=== PATIENT | male | born 1935 | race Caucasian/White ===

== ENCOUNTER 2017-06-04 12:16 | Emergency (ER) | payer MEDICARE, BC ==
[~2017-06-04] VITALS: Ht 170.2 cm; Wt 94.3 kg
[~2017-06-04 12:16] MED LIST: AMLO10 PO; AMLO5 PO; ASPI325EC PO; ASPI81CH PO; ASPI81EC PO; ATOR10 PO; B12; CLON.1; DIPATR; DOCU100 PO; DUTA.5 PO; ESCI10; ESCI10 PO; EXELON PATCH; EXELON1 EACH TD; FINA5 PO; HYDACE10B; HYDR1TAB94 PO; Hydrocodone-Ap1 EA23; MELO7.5; MELO7.5 PO; MEMA10 PO; METO50ER PO; METR500; MULVIT PO; Men's Multi-Vi1 EACH PO; Mobic15 MG; NAMENDA XR28 MG; NORT10 PO; NORT25 PO; Nortriptyline H10 MG; OMEP20ER PO; OMEPRAZOLE MAGN20 MG PO; ONDA4ODT; OXYACE5T PO; PRAV40 PO; PROP120ER PO; PSYL5.85P PO; RAMI2.5 PO; RAMI5 PO; RIVA1.5 TOP; RIVASTIGMINE1 EAC2; RIVASTIGMINE1 EAC2 TD; Ramipril10 MG; TAMS.4ER PO; TOCO1000 PO; VITAMINS; Zofran Odt4 MG SL
[2017-06-04 13:18] LABS: BASOPHILS ABSOLUTE AUTO 0.08 K/mm3 (0.00-0.23); BASOPHILS PERCENT AUTO 1 % (0-2); EOSINOPHILS PERCENT AUTO 5 % (0-6); Hematocrit 43.4 % (37.0-53.0); Hemoglobin 14.9 g/dL (13.5-17.5); IMMATURE GRAN ABSOLUTE AUTO 0.01 K/mm3 (0.00-0.10); IMMATURE GRAN PERCENT AUTO 0 % (0-1); LYMPHOCYTES ABSOLUTE AUTO 1.74 K/mm3 (0.84-5.20); LYMPHOCYTES PERCENT AUTO 30 % (21-46); MONOCYTES ABSOLUTE AUTO 0.49 K/mm3 (0.16-1.47); MONOCYTES PERCENT AUTO 8 % (4-13); Mean Corpuscular HGB Conc 34.3 g/dL (31.5-36.5); Mean Corpuscular Volume 93 fL (80-100); Mean Platelet Volume 9.6 fL (9.1-12.4); NEUTROPHILS ABSOLUTE AUTO 3.23 K/mm3 (1.96-9.15); NEUTROPHILS PERCENT AUTO 55 % (41-73); Platelet Count 176 K/mm3 (150-400); RDW Coefficient Variation 11.9 % (11.7-14.2); RDW Standard Deviation 41.1 fL (35.1-46.3); Red Blood Cell Count 4.65 M/mm3 (4.30-5.90); White Blood Cell Count 5.85 K/mm3 (4.00-11.30)
[2017-06-04 15:11] LABS: Alanine Aminotransfer (ALT/SGP 20 U/L (12-78); Albumin/Globulin Ratio 1.1 (0.8-1.8); Alk Phos 62 U/L (50-136); Anion Gap 8 mmol/L (6-16); Aspartate Aminotrans (AST/SGOT 19 U/L (12-37); Bilirubin, Total 1.1 mg/dL (0.1-1.0); Blood Urea Nitrogen 12 mg/dL (8-24); Bun/Creatinine Ratio 15.9 (12.0-20.0); CO2, Blood 28 mmol/L (21-32); Calcium, Blood 8.7 mg/dL (8.5-10.1); Chloride, Blood 104 mmol/L (98-108); Creatinine, Blood 0.75 mg/dL (0.60-1.20); Globulin, Blood 3.5 g/dL (2.2-4.0); Glomerular Filtration Rate >60 (60-); Glucose, Blood 116 mg/dL (70-99); Potassium, Blood 3.5 mmol/L (3.5-5.5); Sodium, Blood 140 mmol/L (136-145); Total Protein, Blood 7.5 g/dL (6.4-8.2)
== END 2017-06-04 15:44 | disposition home or self-care (01) ==
LOC: ER 12:16
PROVIDERS: Physician Assistant; Psychiatry & Neurology Psychiatry
DX: I10 Essential (primary) hypertension (principal); E78.5 Hyperlipidemia, unspecified; Z87.891 Personal history of nicotine dependence; Z79.899 Other long term (current) drug therapy; Z79.82 Long term (current) use of aspirin
CPT/HCPCS: 36415; 71046; 80053; 83880; 84484; 85025; 93005; 93010; 99283

== ENCOUNTER 2017-07-26 08:43 | Emergency (ER) | payer MEDICARE, BC ==
[~2017-07-26] VITALS: Ht 172.7 cm; Wt 95.2 kg
[2017-07-26] MEDS ORDERED: QUETIAPINE FUMA50 MG PO (09:24)
[2017-07-26] MEDS ORDERED: MEMANTINE HCL E28 MG PO (09:24)
[2017-07-26] MEDS ORDERED: Cyclobenzaprine5 MG PO (11:21)
== END 2017-07-26 11:30 | disposition home or self-care (01) ==
LOC: ER 08:43
DX: M54.2 Cervicalgia (principal); M54.6 Pain in thoracic spine; E78.5 Hyperlipidemia, unspecified; I10 Essential (primary) hypertension; Z79.899 Other long term (current) drug therapy; Z79.82 Long term (current) use of aspirin; Z87.891 Personal history of nicotine dependence; W10.9XXA Fall (on) (from) unspecified stairs and steps, initial encounter; Y92.096 Garden or yard of other non-institutional residence as the place of occurrence of the external cause
CPT/HCPCS: 70450; 71046; 72125; 99284

== ENCOUNTER 2018-09-28 08:24 | Emergency (ER) | payer MEDICARE ==
[~2018-09-28] VITALS: Ht 167.6 cm; Wt 90.7 kg
[~2018-09-28 08:24] MED LIST changes: +Cyclobenzaprine5 MG PO; +MEMANTINE HCL E28 MG PO; +QUETIAPINE FUMA50 MG PO
[2018-09-28 08:46] LABS: Source, Urine Clean Catch
[2018-09-28 08:51] LABS: Bilirubin, Urine Neg (Neg); Blood, Urine Neg (Neg); Glucose Qualitative, Urine Neg (Neg); Ketones, Urine Neg (Neg); Leukocyte Esterase, Urine Neg (Neg); Nitrite, Urine Neg (Neg); Protein, Urine Neg (Neg); Urobilinogen, Urine NORM (Normal)
[2018-09-28 08:59] LABS: Appearance, Urine Clear (Clear); Color, Urine Yellow (P-Yellow)
[2018-09-28 09:23] LABS: BASOPHILS ABSOLUTE AUTO 0.07 K/mm3 (0.00-0.23); BASOPHILS PERCENT AUTO 1 % (0-2); EOSINOPHILS ABSOLUTE AUTO 0.45 K/mm3 (0.00-0.68); EOSINOPHILS PERCENT AUTO 8 % (0-6); Hematocrit 41.3 % (37.0-53.0); Hemoglobin 13.2 g/dL (13.5-17.5); IMMATURE GRAN ABSOLUTE AUTO 0.02 K/mm3 (0.00-0.10); IMMATURE GRAN PERCENT AUTO 0 % (0-1); LYMPHOCYTES ABSOLUTE AUTO 1.86 K/mm3 (0.84-5.20); LYMPHOCYTES PERCENT AUTO 33 % (21-46); MONOCYTES ABSOLUTE AUTO 0.59 K/mm3 (0.16-1.47); MONOCYTES PERCENT AUTO 10 % (4-13); Mean Corpuscular HGB 31.1 pg (26.0-34.0); Mean Corpuscular Volume 97 fL (80-100); Mean Platelet Volume 9.6 fL (9.1-12.4); NEUTROPHILS PERCENT AUTO 47 % (41-73); Platelet Count 183 K/mm3 (150-400); Red Blood Cell Count 4.24 M/mm3 (4.30-5.90); White Blood Cell Count 5.69 K/mm3 (4.00-11.30)
[2018-09-28 09:47] LABS: Alanine Aminotransfer (ALT/SGP 19 U/L (12-78); Albumin, Blood 3.7 g/dL (3.4-5.0); Alk Phos 104 U/L (50-136); Anion Gap 3 mmol/L (6-16); Aspartate Aminotrans (AST/SGOT 17 U/L (12-37); Blood Urea Nitrogen 16 mg/dL (8-24); CO2, Blood 34 mmol/L (21-32); Calcium, Blood 8.9 mg/dL (8.5-10.1); Chloride, Blood 106 mmol/L (98-108); Creatinine, Blood 0.89 mg/dL (0.60-1.20); Globulin, Blood 3.6 g/dL (2.2-4.0); Glomerular Filtration Rate >60 (60-); Glucose, Blood 93 mg/dL (70-99); Potassium, Blood 3.8 mmol/L (3.5-5.5); Sodium, Blood 143 mmol/L (136-145); Total Protein, Blood 7.3 g/dL (6.4-8.2)
[2018-09-28 09:48] LABS: Troponin I <0.015 ng/mL (0.000-0.040)
[2018-09-28] MEDS ORDERED: LEVO750 PO (10:23)
== END 2018-09-28 11:04 | disposition home or self-care (01) ==
LOC: ER 08:24
PROVIDERS: Physician Assistant
DX: J18.9 Pneumonia, unspecified organism (principal); Z79.899 Other long term (current) drug therapy; Z79.82 Long term (current) use of aspirin; I10 Essential (primary) hypertension; E78.00 Pure hypercholesterolemia, unspecified; K21.9 Gastro-esophageal reflux disease without esophagitis; Z87.891 Personal history of nicotine dependence
CPT/HCPCS: 36415; 71046; 80053; 81003; 83880; 84484; 85025; 93005; 93010; 99284-25

== ENCOUNTER 2020-08-07 17:30 | Observation (INO) | payer MEDICARE ==
[~2020-08-07] VITALS: Ht 170.2 cm; Wt 89.7 kg
[~2020-08-07 17:30] MED LIST changes: +LEVO750 PO
[2020-08-07] MEDS ORDERED: DUTA.5 PO (17:49)
[2020-08-07] MEDS ORDERED: OLAN5 PO (17:50)
[2020-08-07 22:59] LABS: Influenza A, PCR NEGATIVE (NEGATIVE); Influenza B, PCR NEGATIVE (NEGATIVE); Resp Syncytial Virus, PCR NEGATIVE (NEGATIVE); SARS-Cov-2 (COVID-19) PCR, MMC NEGATIVE (NEGATIVE)
--- NOTE | 2020-08-07 23:08 | NUR ---
08/07/20 8668 Teagan Benavides CONVERSTATION HELD WITH DR. KWOK, ANETHESIOLOGIST, RELATED TO SEDATION OF PATIENT. DISCUSSED RISKS ASSOCIATED WITH DEMENTIA, ASPIRATION AND FOOD BOLUS IN ESOPHOGUS AND INCREASED RISK OF NURSING SEDATION. PER DR. KWOK, NURSE ADMINISTERED PROPOFOL SEDATION OKAY FOR THIS PATIENT AND TO CALL HIM IF ISSUES DEVELOP AFTER CASE HAS STARTED.
[2020-08-08 00:39] LABS: PCO2 Arterial 65.9 mmHg (35-45); PO2 Arterial 59.6 mmHg (80-100)
--- NOTE | 2020-08-08 01:47 | NUR ---
ARRIVAL TO ICU 4 PT ARRIVES TO ICU 4 AT 0100 VIA OR BED, TRANSFERED TO ICU BED VIA SLIDE SHEET WITH FOUR STAFF. PT IS ALERT AND ORIENTED TO SELF ONLY, UNKNOWN TIME OR PLACE, HX OF ALZHEIMERS. PT ARRIVES ON 15L NON-REBREATHER, SPO2 >98% ON THIS. PT IS COURSE THROUGHOUT WITH DIMINISHED LOWER BASES. ABLE TO SWITCH TO 5LNC, SPO2 NOW >90%, OXIMIZER ON SB IF NEEDED. AFEBRILE. HR 60'S. SBP 150-170. PT INCONTINENT OF URINE, PT SOILED UPON ARRIVAL AND CHANGED. SECOND IV STARTED. AWAITING ORDERS FROM ADMITTING MD.
[2020-08-08 03:36] LABS: BASOPHILS ABSOLUTE AUTO 0.08 K/mm3 (0.00-0.23); BASOPHILS PERCENT AUTO 1 % (0-2); EOSINOPHILS ABSOLUTE AUTO 0.38 K/mm3 (0.00-0.68); EOSINOPHILS PERCENT AUTO 5 % (0-6); Hematocrit 40.8 % (37.0-53.0); Hemoglobin 13.7 g/dL (13.5-17.5); IMMATURE GRAN ABSOLUTE AUTO 0.03 K/mm3 (0.00-0.10); IMMATURE GRAN PERCENT AUTO 0 % (0-1); LYMPHOCYTES ABSOLUTE AUTO 1.31 K/mm3 (0.84-5.20); LYMPHOCYTES PERCENT AUTO 15 % (21-46); MONOCYTES ABSOLUTE AUTO 0.65 K/mm3 (0.16-1.47); MONOCYTES PERCENT AUTO 8 % (4-13); Mean Corpuscular HGB 32.2 pg (26.0-34.0); Mean Corpuscular HGB Conc 33.6 g/dL (31.5-36.5); Mean Corpuscular Volume 96 fL (80-100); Mean Platelet Volume 10.3 fL (9.1-12.4); NEUTROPHILS ABSOLUTE AUTO 6.07 K/mm3 (1.96-9.15); NEUTROPHILS PERCENT AUTO 71 % (41-73); Platelet Count 165 K/mm3 (150-400); RDW Coefficient Variation 11.9 % (11.7-14.2); RDW Standard Deviation 41.6 fL (35.1-46.3); Red Blood Cell Count 4.25 M/mm3 (4.30-5.90); White Blood Cell Count 8.52 K/mm3 (4.00-11.30)
[2020-08-08 03:50] LABS: Anion Gap 0 mmol/L (6-16); Blood Urea Nitrogen 17 mg/dL (8-24); CO2, Blood 35 mmol/L (21-32); Chloride, Blood 104 mmol/L (98-108); Creatinine, Blood 0.95 mg/dL (0.60-1.20); Glomerular Filtration Rate >60 (60-); Glucose, Blood 105 mg/dL (70-99); Potassium, Blood 3.6 mmol/L (3.5-5.5); Sodium, Blood 139 mmol/L (136-145)
--- NOTE | 2020-08-08 06:19 | NUR ---
END OF SHIFT SUMMARY PT IS ALERT AND ORIENTED TO ONLY SELF BUT NOT TIME, PLACE, OR SITUATION; PT IS INCOMPREHENSIBLE AND MUMBLES AT TIMES AND OCCATIONALLY HAS A GURGLY VOICE THAT HE ATTEMPTS TO CLEAR. AFEBRILE. PT FIDGETS WITH OBJECTS INCLUDING SPO2 PROBE AND OXIMIZER, TRIAL OF RA ATTEMPTED AND SUCESSFUL. SPO2 >90% ON RA, WEAK WET COUGH NOTED. HR 50-60'S. SBP 130-150. BT HYPOACTIVE. PT INCONTINENT AND SATURATES BRIEF WHEN URINATES. PT SALINE LOCKED AND HAS NOT SLEPT AT ALL SINCE ARRIVAL TO ICU. WILL REPORT TO AM RN WHEN AVAILABLE.
--- NOTE | 2020-08-08 07:19 | NUR ---
PT AWAKE AND ALERT-ORIENTED TO SELF ONLY. PT SPEECH IS GARBLE AND DOES NOT MAKE SENSE. COOPERATIVE WITH CARE. GARCIA FIDGETS WITH LINES AND TUBES-REMOVES ECG ELECTRODES AND GOWN FREQUENTLY. VS WDL. LUNGS SLIGHTLY DIMINISHED AND COARSE, BUT SATS>90% ON RA. OCCASIONAL, MOIST, NONPRODUCTIVE COUGH. NPO PENDING SWALLOW EVALUATION. ANTICIPATE POSSIBLE STATUS CHANGE LATER TODAY.
[2020-08-08] MEDS ORDERED: AMLO10 PO (11:59)
[2020-08-08] MEDS ORDERED: NORTRIPTYLINE H PO (12:00)
--- NOTE | 2020-08-08 12:10 | NUR ---
SWALLOW EVALUATION COMPLETED. PHONED SHAHID AT [facility] TO REVIEW DISCHARGE INSTRUCTIONS AND NEW DIET. WRITTEN INSTRUCTIONS WILL BE SENT HOME WITH PT WELL.
--- NOTE | 2020-08-08 13:10 | NUR ---
PT HERE TO TAKE PT HOME. 3 RN'S ATTEMPTED TO TRANSFER PT TO WHEELCHAIR-PT VERY RESISTANT AND NOT FOLLOWING COMMANDS. SPOKE WITH REJI AT [facility] AND HE STATES THAT PT IS AMBULATORY, BUT IT HAS TO BE AT HIS WILL-PT IS UNABLE TO FOLLOW COMMANDS MOST OF THE TIME. WILL CALL FOR NON-EMERGENT TRANSPORT. PT SPOUSE IS IN AGREEMENT WITH THIS PLAN AND REJI AT [facility] HAS BEEN UPDATED.
--- NOTE | 2020-08-08 14:30 | NUR ---
PT DISCHARGED TO HOME-[facility] [place]-TRANSPORT VIA NON-EMERGENT TRANSPORT. BELONGINGS AND DISCHARGE INSTRUCTIONS SENT WITH PT.
== END 2020-08-08 14:30 | disposition home or self-care (01) ==
LOC: ER 17:30 → ICUW 17:32 → ICUE 08-08 01:01 → ICUW 08-08 01:01 → ER 08-08 01:01 → ICUE 08-08 01:01 → ICUW 08-08 01:07 → ICUE 08-08 02:06
PROVIDERS: Internal Medicine Gastroenterology; ADMIT Family Medicine
PROC: 0D758ZZ Dilation of Esophagus, Via Natural or Artificial Opening Endoscopic (ICD-10-PCS; principal; 2020-08-08)
DX: J96.01 Acute respiratory failure with hypoxia (principal); K22.2 Esophageal obstruction; T18.128A Food in esophagus causing other injury, initial encounter; I10 Essential (primary) hypertension; E78.5 Hyperlipidemia, unspecified; G30.8 Other Alzheimer's disease; F02.80 Dementia in other diseases classified elsewhere, unspecified severity, without behavioral disturbance, psychotic disturbance, mood disturbance, and anxiety; K21.9 Gastro-esophageal reflux disease without esophagitis; N40.0 Benign prostatic hyperplasia without lower urinary tract symptoms; K57.92 Diverticulitis of intestine, part unspecified, without perforation or abscess without bleeding; Z79.82 Long term (current) use of aspirin; Z87.891 Personal history of nicotine dependence; Z20.822 Contact with and (suspected) exposure to COVID-19
CPT/HCPCS: 0241U; 36415; 36600; 71045; 71046; 80048; 82803; 85025; 92610; 96365; 96375; 99285-25; A9270; C1726; C9113; G0378; J0295; J2704; J7120

== ENCOUNTER 2020-12-13 16:20 | Inpatient (IN) | payer MEDICARE ==
[~2020-12-13] VITALS: Ht 182.9 cm; Wt 80.0 kg
[~2020-12-13 16:20] MED LIST changes: -ASPI325EC PO; +Aspir 8181 MG PO; -ESCI10 PO; +ESCI20 PO; +NAMENDA XR28 MG PO; +NORTRIPTYLINE H PO; +OLAN5 PO; -RAMI2.5 PO; -RIVASTIGMINE1 EAC2 TD; +RIVASTIGMINE1 EAC4 TD; +Ramipril10 MG PO
[2020-12-13 17:25] LABS: BASOPHILS ABSOLUTE AUTO 0.04 K/mm3 (0.00-0.23); BASOPHILS PERCENT AUTO 0 % (0-2); EOSINOPHILS ABSOLUTE AUTO 0.04 K/mm3 (0.00-0.68); EOSINOPHILS PERCENT AUTO 0 % (0-6); Hematocrit 42.9 % (37.0-53.0); Hemoglobin 13.5 g/dL (13.5-17.5); IMMATURE GRAN ABSOLUTE AUTO 0.06 K/mm3 (0.00-0.10); IMMATURE GRAN PERCENT AUTO 1 % (0-1); LYMPHOCYTES PERCENT AUTO 15 % (21-46); MONOCYTES ABSOLUTE AUTO 0.85 K/mm3 (0.16-1.47); MONOCYTES PERCENT AUTO 7 % (4-13); Mean Corpuscular HGB 31.8 pg (26.0-34.0); Mean Corpuscular HGB Conc 31.5 g/dL (31.5-36.5); Mean Corpuscular Volume 101 fL (80-100); Mean Platelet Volume 11.1 fL (9.1-12.4); NEUTROPHILS ABSOLUTE AUTO 10.13 K/mm3 (1.96-9.15); NEUTROPHILS PERCENT AUTO 78 % (41-73); Platelet Count 193 K/mm3 (150-400); RDW Coefficient Variation 12.4 % (11.7-14.2); RDW Standard Deviation 46.6 fL (35.1-46.3); Red Blood Cell Count 4.25 M/mm3 (4.30-5.90); White Blood Cell Count 13.02 K/mm3 (4.00-11.30)
[2020-12-13 17:31] LABS: Source, Urine Catheter
[2020-12-13 17:37] LABS: Bun/Creatinine Ratio 34.9 (12.0-20.0); Calcium, Blood 8.4 mg/dL (8.5-10.1); Creatinine, Blood 1.92 mg/dL (0.60-1.20); Potassium, Blood 3.2 mmol/L (3.5-5.5)
[2020-12-13 17:39] LABS: Appearance, Urine Hazy (Clear); Blood, Urine 1+ (Neg); Color, Urine Amber (P-Yellow); Glucose Qualitative, Urine Neg (Neg); Ketones, Urine 1+ (Neg); Leukocyte Esterase, Urine 1+ (Neg); Nitrite, Urine Pos (Neg); Protein, Urine 3+ (Neg); Specific Gravity, Urine 1.025 (1.003-1.022); Urobilinogen, Urine NORM (Normal)
[2020-12-13 17:44] LABS: Bilirubin, Urine 1+ (Neg)
[2020-12-13 17:47] LABS: Granular Casts 0-2 /lpf (0)
[2020-12-13 17:48] LABS: Bacteria Many /hpf; Red Blood Cells, Urine 0-2 /hpf (0-2); Squamous Epithelial Cells Rare /hpf (Few)
[2020-12-13 17:52] LABS: Waxy Cast Rare /lpf (0)
[2020-12-13 22:56] LABS: Potassium, Blood 3.6 mmol/L (3.5-5.5)
[2020-12-14] MEDS ORDERED: TAMS.4ER PO (02:26)
[2020-12-14] MEDS ORDERED: AZIT250 PO (02:27)
[2020-12-14] MEDS ORDERED: DEXA4 PO (02:28)
[2020-12-14 04:54] LABS: BASOPHILS ABSOLUTE AUTO 0.03 K/mm3 (0.00-0.23); BASOPHILS PERCENT AUTO 0 % (0-2); EOSINOPHILS ABSOLUTE AUTO 0.27 K/mm3 (0.00-0.68); EOSINOPHILS PERCENT AUTO 2 % (0-6); Hematocrit 43.1 % (37.0-53.0); Hemoglobin 13.4 g/dL (13.5-17.5); IMMATURE GRAN ABSOLUTE AUTO 0.04 K/mm3 (0.00-0.10); IMMATURE GRAN PERCENT AUTO 0 % (0-1); LYMPHOCYTES ABSOLUTE AUTO 2.06 K/mm3 (0.84-5.20); LYMPHOCYTES PERCENT AUTO 17 % (21-46); MONOCYTES ABSOLUTE AUTO 0.79 K/mm3 (0.16-1.47); MONOCYTES PERCENT AUTO 7 % (4-13); Mean Corpuscular HGB 31.5 pg (26.0-34.0); Mean Corpuscular HGB Conc 31.1 g/dL (31.5-36.5); Mean Corpuscular Volume 101 fL (80-100); Mean Platelet Volume 11.1 fL (9.1-12.4); NEUTROPHILS ABSOLUTE AUTO 8.72 K/mm3 (1.96-9.15); NEUTROPHILS PERCENT AUTO 73 % (41-73); Platelet Count 164 K/mm3 (150-400); RDW Coefficient Variation 12.4 % (11.7-14.2); RDW Standard Deviation 46.4 fL (35.1-46.3); Red Blood Cell Count 4.25 M/mm3 (4.30-5.90); White Blood Cell Count 11.91 K/mm3 (4.00-11.30)
[2020-12-14 05:17] LABS: Albumin/Globulin Ratio 0.8 (0.8-1.8); Bilirubin, Total 0.8 mg/dL (0.1-1.0); Bun/Creatinine Ratio 41.4 (12.0-20.0); Calcium, Blood 8.3 mg/dL (8.5-10.1); Creatinine, Blood 1.62 mg/dL (0.60-1.20); Globulin, Blood 3.8 g/dL (2.2-4.0); Potassium, Blood 3.5 mmol/L (3.5-5.5); Total Protein, Blood 6.8 g/dL (6.4-8.2)
--- NOTE | 2020-12-14 06:39 | NUR ---
Patient very somnolent overnight. wakes and moans or will flail arms for just a moment when oral care performed or position readjusted. Non verbal at this point. Staff aware patient has very recently been agitated to the point of making his fellow residents at his f[facility] frightened and are taking precautions to protect their and his safety. Bladder scan at 0530 indicated 300 ml of urine in bladder. will inform oncoming RN.
--- NOTE | 2020-12-14 06:54 | NUR ---
PATIENT'S MOUTH WAS DRY WITH MULTIPLE WHITE PATCHES OF DRIED WHITE MUCOUS. Q 2 HOUR ORAL CARE WITH SX SWABS THROUGHOUT THE SHIFT. NURSING ORDER WRITTEN FOR Q2 ORAL CARE.
[2020-12-14 14:36] LABS: Bun/Creatinine Ratio 50.8 (12.0-20.0); Calcium, Blood 8.7 mg/dL (8.5-10.1); Creatinine, Blood 1.2 mg/dL (0.60-1.20); Potassium, Blood 3.6 mmol/L (3.5-5.5)
[2020-12-15 04:50] LABS: BASOPHILS ABSOLUTE AUTO 0.02 K/mm3 (0.00-0.23); BASOPHILS PERCENT AUTO 0 % (0-2); EOSINOPHILS ABSOLUTE AUTO 0.08 K/mm3 (0.00-0.68); EOSINOPHILS PERCENT AUTO 1 % (0-6); Hematocrit 42.2 % (37.0-53.0); Hemoglobin 13.5 g/dL (13.5-17.5); IMMATURE GRAN ABSOLUTE AUTO 0.06 K/mm3 (0.00-0.10); IMMATURE GRAN PERCENT AUTO 1 % (0-1); LYMPHOCYTES ABSOLUTE AUTO 2.13 K/mm3 (0.84-5.20); LYMPHOCYTES PERCENT AUTO 18 % (21-46); MONOCYTES ABSOLUTE AUTO 0.86 K/mm3 (0.16-1.47); MONOCYTES PERCENT AUTO 7 % (4-13); Mean Corpuscular HGB 31.8 pg (26.0-34.0); Mean Corpuscular Volume 99 fL (80-100); Mean Platelet Volume 11.6 fL (9.1-12.4); NEUTROPHILS ABSOLUTE AUTO 8.78 K/mm3 (1.96-9.15); NEUTROPHILS PERCENT AUTO 74 % (41-73); Platelet Count 148 K/mm3 (150-400); RDW Coefficient Variation 11.7 % (11.7-14.2); RDW Standard Deviation 42.8 fL (35.1-46.3); Red Blood Cell Count 4.25 M/mm3 (4.30-5.90); White Blood Cell Count 11.93 K/mm3 (4.00-11.30)
[2020-12-15 05:11] LABS: Calcium, Blood 8.9 mg/dL (8.5-10.1); Creatinine, Blood 1.24 mg/dL (0.60-1.20); Potassium, Blood 3.9 mmol/L (3.5-5.5)
--- NOTE | 2020-12-15 05:13 | NUR ---
PATIENT RESTED COMFORTABLY ALL NIGHT AFTER HS SCHEDULED SEROQUEL AND ZYPREXA. DARSHANA HAD STOOD UP OOB EARLIER IN THE EVENING, BUT SAT RIGHT BACK DOWN WHEN THE ALARM WENT OFF. NO SIGNS OF AGITATION NOTED. LABS THIS MORNING SHOWED A SODIUM ONLY SLIGHTLY DOWN TO 152. D5 AT 100ML/HR STILL RUNNING CONTINUOUSLY.
--- NOTE | 2020-12-15 10:06 | NUR ---
ADMIT: 12/13/20 DISCHARGE: TBD DX: ACUTE METABOLIC ENCEPHALOPATHY, COVID19 CC: Niels AGGARWAL [facility] - [address] [place] [address] [place] [address] NEXT OF KIN/CONTACTS: NILO RENEE, SPOUSE PRIOR TO ADMIT - DME: NONE CCM: NONE HHC/HOSPICE: [facility]- 2017 Update 12/15/20: Day 2 of hospitalization. Pt. diagnosed with COVID 19 on Dec.03 per chart review. [facility] staff has been providing care for him in their COVID positive building (building B). He was transported to the ED on 12/13/20 by EMS due to increased confusion and poor oral intake. Pt. was combative with staff at that time. Has been calm during hospitalization. Low O2 needs throughout stay. Hypernatremia managed with a slight decrease over the last two days. Patient's updated regarding condition yesterday by Dr. Church. Today pt. is at 94% on RA. Labs have improved slightly. Though pt. has been noted to be somnolent during hospital stay, staff at [facility] was definitely concerned regarding his behavior prior. Hopeful that pt. will return to baseline. Anticipated needs at time of discharge to include: Facility accepting pt. to return to [facility], hospital F/U appt. via telehealth within 5-7 days post discharge, D/C paperwork sent via fax and hard copy to facility, transportation.
--- NOTE | 2020-12-15 16:47 | NUR ---
UPDATE GIVEN TO RN AT [facility]
--- NOTE | 2020-12-15 18:02 | NUR ---
Update 12/15/20: Attempted to contact patient's Radha to provide update. No answer and unable to leave message. Per chart review, nursing staff has provided update to RN at [facility]. Plan to touch base with [facility] director tomorrow as well.
--- NOTE | 2020-12-16 04:40 | NUR ---
END OF SHIFT SUMMARY: PT RESTLESS AT THE BEGINNING OF SHIFT BUT IS RESTING COMFORTABLY AT THIS TIME. PT ALERT TO PERSON ONLY. NO ACUTE DISTRESS NOTED. PT INCONTINENT AND REQUIRES ONE PERSON ASSIST TO TURN AND REPOSITION. ON D5 AT 125ML/HR.
[2020-12-16 06:14] LABS: Anion Gap 2 mmol/L (6-16); Blood Urea Nitrogen 34 mg/dL (8-24); Bun/Creatinine Ratio 33.3 (12.0-20.0); CO2, Blood 31 mmol/L (21-32); Calcium, Blood 8.7 mg/dL (8.5-10.1); Chloride, Blood 115 mmol/L (98-108); Creatinine, Blood 1.02 mg/dL (0.60-1.20); Glomerular Filtration Rate >60 (60-); Glucose, Blood 154 mg/dL (70-99); Potassium, Blood 3.1 mmol/L (3.5-5.5); Sodium, Blood 148 mmol/L (136-145)
--- NOTE | 2020-12-16 09:15 | NUR ---
Update 12/16/20: Pt. likely to be appropriate for discharge today. Attempted to contact RN Sabina at [facility] [place] [facility]. Left message for her to return call to discuss discharge planning. Plan to coordinate discharge with Sabina and schedule transport via [facility] services. [facility] team will schedule hospital F/U at time of CESARIO call to staff at [facility]' 24-48 hours after discharge. Will fax D/C orders when they are available and deliver D/C packet to room.
--- NOTE | 2020-12-16 17:39 | NUR ---
Pt. appropriate to discharge tomorrow as long as he remains stable. Spoke with Sabina GOLDSTEIN at [facility], they will happily accept pt. back to their facility. Transport scheduled at 11:30am tomorrow morning 12/17/20 with [facility]. Packet placed in lockbox outside of patient's room with note that D/C papers will need to be added once complete. Dr. Conde notified of discharge plan. Beatriz with [facility] care management will fax D/C paperwork to Sabina at [facility] in the am fax #[phone].
--- NOTE | 2020-12-17 03:38 | NUR ---
SHIFT SUMMARY A/O TO SELF ONLY, IMPULSIVE, DIFFICULTY FOLLOWING DIRECTIONS. LELIA IN PLACE FOR SAFETY. CURRENLTY ON RA WITH SATS GREATER THAN 92. VSS, NO ACUTE CHANGES AT THIS TIME. BED IN LOWEST POSITION WITH CALL LIGHT IN REACH. WILL CONTINUE TO MONITOR AND REPORT TO ONCOMING RN.
[2020-12-17 06:06] LABS: Anion Gap 2 mmol/L (6-16); Blood Urea Nitrogen 30 mg/dL (8-24); Bun/Creatinine Ratio 34.2 (12.0-20.0); CO2, Blood 32 mmol/L (21-32); Chloride, Blood 112 mmol/L (98-108); Creatinine, Blood 0.88 mg/dL (0.60-1.20); Glomerular Filtration Rate >60 (60-); Glucose, Blood 96 mg/dL (70-99); Potassium, Blood 3.3 mmol/L (3.5-5.5); Sodium, Blood 146 mmol/L (136-145)
--- NOTE | 2020-12-17 10:18 | NUR ---
Faxed discharge orders to [facility]. Attempted to schedule hospital f/u appt with [facility] to return call to schedule appt. -hortencia
[2020-12-17] MEDS ORDERED: FAMO20 PO (10:22)
[2020-12-17] MEDS ORDERED: METO50ER PO (10:24)
[2020-12-17] MEDS ORDERED: POTCHL20ER PO (10:25)
--- NOTE | 2020-12-17 11:45 | NUR ---
Shift Summary, The patient was A/0X1 to self, he has been compliant and pleasent with care. He was a 1 prsn transfer to the chair. The patient was able to feed himself and take medications with applesauce. He was in a gianni until discharge. The Patient was discharged to [facility] and they were contacted and report was given to the RN. The patient was transported via EMS.
== END 2020-12-17 11:43 | disposition home or self-care (01) | DRG 177 ==
LOC: ER 16:20 → MEDS 19:31
PROVIDERS: Family Medicine; Student in an Organized Health Care Education/Training Program; ADMIT Internal Medicine
PROC: 3E0333Z Introduction of Anti-inflammatory into Peripheral Vein, Percutaneous Approach (ICD-10-PCS; principal; 2020-12-14)
PROC: 8E0ZXY6 Isolation (ICD-10-PCS; 2020-12-14)
DX: U07.1 COVID-19 (principal); G93.41 Metabolic encephalopathy; J96.01 Acute respiratory failure with hypoxia; J12.82 Pneumonia due to coronavirus disease 2019; E87.0 Hyperosmolality and hypernatremia; N17.9 Acute kidney failure, unspecified; N39.0 Urinary tract infection, site not specified; Z66 Do not resuscitate; E86.0 Dehydration; I10 Essential (primary) hypertension; E87.6 Hypokalemia; Z90.49 Acquired absence of other specified parts of digestive tract; K21.9 Gastro-esophageal reflux disease without esophagitis; Z96.642 Presence of left artificial hip joint; Z79.82 Long term (current) use of aspirin; Z79.899 Other long term (current) drug therapy; E78.5 Hyperlipidemia, unspecified; Z98.890 Other specified postprocedural states; G30.9 Alzheimer's disease, unspecified; F02.80 Dementia in other diseases classified elsewhere, unspecified severity, without behavioral disturbance, psychotic disturbance, mood disturbance, and anxiety; Z78.1 Physical restraint status; N40.0 Benign prostatic hyperplasia without lower urinary tract symptoms
CPT/HCPCS: 36415; 51701; 71045; 80048; 80053; 81001; 84132; 84295; 85025; 87086; 93005; 93010; 96365-59; 97161; 97530; 99285-25; A9270; J0696; J1100; J1650; J3480; J7070; J7512

== ENCOUNTER → 2021-01-15 | Outpatient (CLI) | payer MEDICARE ==
[~2021-01-15] MED LIST changes: +AZIT250 PO; +DEXA4 PO; +FAMO20 PO; +POTCHL20ER PO
[2021-01-15 19:22] LABS: Anion Gap 2 mmol/L (6-16); Blood Urea Nitrogen 26 mg/dL (8-24); Bun/Creatinine Ratio 30.1 (12.0-20.0); CO2, Blood 32 mmol/L (21-32); Calcium, Blood 8.8 mg/dL (8.5-10.1); Chloride, Blood 108 mmol/L (98-108); Creatinine, Blood 0.86 mg/dL (0.60-1.20); Glomerular Filtration Rate >60 (60-); Glucose, Blood 114 mg/dL (70-99); Potassium, Blood 3.9 mmol/L (3.5-5.5); Sodium, Blood 142 mmol/L (136-145)
== END | disposition home or self-care (01) ==
LOC: LAB SHORT 16:09
PROVIDERS: Physician Assistant
DX: I10 Essential (primary) hypertension (principal)
CPT/HCPCS: 80048

== ENCOUNTER 2021-09-27 07:26 | Inpatient (IN) | payer MEDICARE ==
[~2021-09-27] VITALS: Ht 165.1 cm; Wt 86.2 kg
[2021-09-27 08:39] LABS: Hematocrit 49.9 % (37.0-53.0); Hemoglobin 16.8 g/dL (13.5-17.5); Mean Corpuscular HGB 31.9 pg (26.0-34.0); Mean Corpuscular HGB Conc 33.7 g/dL (31.5-36.5); Mean Corpuscular Volume 95 fL (80-100); Mean Platelet Volume 10.5 fL (9.1-12.4); Platelet Count 205 K/mm3 (150-400); RDW Coefficient Variation 12.1 % (11.7-14.2); RDW Standard Deviation 42.3 fL (35.1-46.3); Red Blood Cell Count 5.27 M/mm3 (4.30-5.90); White Blood Cell Count 9.13 K/mm3 (4.00-11.30)
[2021-09-27 08:44] LABS: Base Excess Venous 4.6 mmol/L; Bicarbonate Venous 27.2 mmol/L (24.0-30.0); PCO2 Venous 49.7 mmHg (38-42); pH Blood Venous 7.38 (7.34-7.37)
[2021-09-27 08:48] LABS: International Normalized Ratio 1.16; Prothrombin Time Results 12.1 Sec (9.7-11.5)
[2021-09-27 08:54] LABS: Albumin, Blood 3.9 g/dL (3.4-5.0); Albumin/Globulin Ratio 0.9 (0.8-1.8); Bilirubin, Direct 0.3 mg/dL (0.0-0.3); Bilirubin, Indirect 1.6 mg/dL (0.1-0.7); Bilirubin, Total 1.9 mg/dL (0.1-1.0); Bun/Creatinine Ratio 17.6 (12.0-20.0); Calcium, Blood 9.3 mg/dL (8.5-10.1); Creatinine, Blood 3.81 mg/dL (0.60-1.20); Globulin, Blood 4.4 g/dL (2.2-4.0); Magnesium, Blood 2.8 mg/dL (1.6-2.4); Potassium, Blood 4.6 mmol/L (3.5-5.5); Total Protein, Blood 8.3 g/dL (6.4-8.2)
[2021-09-27 09:13] LABS: BAND PERCENT MAN 18 % (0-8); BASOPHILS PERCENT MAN 0 % (0-2); EOSINOPHILS PERCENT MAN 0 % (0-6); LYMPHOCYTES ABSOLUTE MAN 1.27 K/mm3 (0.84-5.20); LYMPHOCYTES PERCENT MAN 14 % (21-46); METAMYELOCYTE ABSOLUTE MAN 0.09 K/mm3 (0.00-0.00); METAMYELOCYTE PERCENT MAN 1 % (0-0); MONOCYTES ABSOLUTE MAN 0.82 K/mm3 (0.16-1.47); MONOCYTES PERCENT MAN 9 % (4-13); NEUTROPHILS ABSOLUTE MAN 6.93 K/mm3 (1.96-9.15); SEG NEUTROPHILS PERCENT MAN 58 % (41-73); TOTAL CELLS COUNTED 100
[2021-09-27 09:19] LABS: Source, Urine Straight Cath
[2021-09-27 09:30] LABS: Blood, Urine Neg (Neg); Glucose Qualitative, Urine Neg (Neg); Ketones, Urine 1+ (Neg); Leukocyte Esterase, Urine 1+ (Neg); Nitrite, Urine Neg (Neg); Protein, Urine 2+ (Neg); Urobilinogen, Urine 1+ (Normal)
[2021-09-27 09:36] LABS: Influenza A, PCR NEGATIVE (NEGATIVE); Influenza B, PCR NEGATIVE (NEGATIVE); Resp Syncytial Virus, PCR NEGATIVE (NEGATIVE); SARS-Cov-2 (COVID-19) PCR, MMC NEGATIVE (NEGATIVE)
[2021-09-27 10:12] LABS: Bilirubin, Urine 2+ (Neg); Color, Urine Amber (P-Yellow)
[2021-09-27 10:13] LABS: Appearance, Urine Hazy (Clear)
[2021-09-27 10:15] LABS: Red Blood Cells, Urine 0-2 /hpf (0-2); White Blood Cells, Urine 0-2 /hpf (0-5)
[2021-09-27 10:16] LABS: Bacteria Mod /hpf; Squamous Epithelial Cells Rare /hpf (Few)
--- NOTE | 2021-09-27 19:03 | NUR ---
SHIFT SUMMARY PT ADMITTED THIS AFTERNOON FOR PARTIAL SMALL BOWEL OBSTRUCTION. NG TUBE IN PLACE TO LOW INTERMITTENT SUCTION. PT HAS BEEN DROWSY BUT RESPONDS TO VERBAL STIMULI SINCE HE ARRIVED FROM ER. PT PLACED IN SOFT WRIST RESTRAINS TO PROTECT NG TUBE PT TRYING TO PULL AT LINES AND TUBES. PT'S HAS BEEN AT THE BEDSIDE FOR SUPPORT. REPORT GIVEN TO TANNER GOLDSTEIN.
--- NOTE | 2021-09-28 04:14 | NUR ---
ASSIMED CARE OF PT AT 1900 HRS. PT IS RESTRAINED, CONFUSED AND UNABLE TO VERBALIZE NEEDS. HAS NG TUBE SET TO LOW INTERMITTENT SUCTION FOR SBO. RESTRAINTS IN PLACE D/T PT PULLING LINES AND TRYING TO REMOVE NG TUBE. PRN HALDOL GIVEN FOR AGITATION AND PT STILL ATTEMPTED TO REMOVE LINES. RESTRAINTS REMAIN IN PLACE FOR PT SAFETY. PT SLEEPS INTERMITTENTLY THROUGH THE NIGHT. VSS. 300 ML OUT THIS SHIFT. WILL CONTINUE TO MONITOR THIS PT AND GIVE REPORT TO ONCOMING RN
[2021-09-28 05:10] LABS: BASOPHILS ABSOLUTE AUTO 0.03 K/mm3 (0.00-0.23); BASOPHILS PERCENT AUTO 0 % (0-2); EOSINOPHILS ABSOLUTE AUTO 0.22 K/mm3 (0.00-0.68); EOSINOPHILS PERCENT AUTO 3 % (0-6); Hematocrit 43.7 % (37.0-53.0); Hemoglobin 14.5 g/dL (13.5-17.5); IMMATURE GRAN ABSOLUTE AUTO 0.03 K/mm3 (0.00-0.10); IMMATURE GRAN PERCENT AUTO 0 % (0-1); LYMPHOCYTES ABSOLUTE AUTO 1.27 K/mm3 (0.84-5.20); LYMPHOCYTES PERCENT AUTO 16 % (21-46); MONOCYTES ABSOLUTE AUTO 1.27 K/mm3 (0.16-1.47); MONOCYTES PERCENT AUTO 16 % (4-13); Mean Corpuscular HGB 32.3 pg (26.0-34.0); Mean Corpuscular HGB Conc 33.2 g/dL (31.5-36.5); Mean Corpuscular Volume 97 fL (80-100); Mean Platelet Volume 10.5 fL (9.1-12.4); NEUTROPHILS ABSOLUTE AUTO 5.07 K/mm3 (1.96-9.15); NEUTROPHILS PERCENT AUTO 64 % (41-73); Platelet Count 170 K/mm3 (150-400); RDW Coefficient Variation 12.4 % (11.7-14.2); RDW Standard Deviation 44.3 fL (35.1-46.3); Red Blood Cell Count 4.49 M/mm3 (4.30-5.90); White Blood Cell Count 7.89 K/mm3 (4.00-11.30)
[2021-09-28 05:38] LABS: Albumin, Blood 3.4 g/dL (3.4-5.0); Bilirubin, Total 1.5 mg/dL (0.1-1.0); Bun/Creatinine Ratio 29.9 (12.0-20.0); Calcium, Blood 8.3 mg/dL (8.5-10.1); Creatinine, Blood 2.74 mg/dL (0.60-1.20); Globulin, Blood 3.4 g/dL (2.2-4.0); Magnesium, Blood 2.5 mg/dL (1.6-2.4); Potassium, Blood 3.5 mmol/L (3.5-5.5); Total Protein, Blood 6.8 g/dL (6.4-8.2)
--- NOTE | 2021-09-28 12:11 | NUR ---
PREVIOUS NG TUBE REMOVED WAS COILED AND UNABLE TO ADVANCE TO WHERE NEEDED FOR SMALL BOWEL FOLLOW THROUGH. NEW NG TUBE PLACEMENT ATTEMPTED X'S 3 USING HURRICAINE SPRAY FOR COMFORT AFTER FIRST TWO, PT RESTRAINED BUT FIGHTING PLACEMENT YELLING FOR US TO "STOP, PLEASE STOP" AND TO "TAKE IT OUT NOW". NOTIFIED, ORDER FOR ZYPREXA PO TO CALM HIM TO ATTEMPT AGAIN, PT REFUSED TO TAKE. GIVEN IM BY PRIMARY RN.
--- NOTE | 2021-09-28 13:01 | NUR ---
ATTEMPTED PLACEMENT OF NG TUBE FOLLOWING ADMINISTRATION OF IM ZYPREXA. PT STARTED YELLING, "DEAR GOD PLEASE DON'T DO THIS". RN STOPPED.
--- NOTE | 2021-09-28 13:54 | NUR ---
Pt is refusing to allow staff to insert NG tube; he cries out and begs nursing not to put NG tube back in his nose. Staff have attempted multiple times to replace it this am. However, after speaking with pt's and son, revewing advanced directive together, they have opted for comfort care. Dr. Adams is ok with this. Will leave IV Protonix in orders, d/c most routine medications. Family will be in later today. Palliaitive Care to continue working with pt.
--- NOTE | 2021-09-28 19:04 | NUR ---
SHIFT SUMMARY SBFT ORDERED BY SURGEON, PT NG TUBE FOUND TO BE NOT IN USABLE LOCATION COILED UP, ATTEMPTED 3 TIMES TO CORRECT WITH NO SUCCESS, NG TUBE REMOVED. ATTEMPTED TO PLACE NEW NG WITH ASSISTANCE BUT PT WAS RESISTING ATTEMPTS EVEN WITH REASSURANCE, PT UNABLE TO FOLLOW COMMANDS TO ASSIST WITH PLACEMENT. PT GIVEN HALDOL TO HELP HIM RELAX AND ANOTHER ATTEMPT WAS MADE TO PLACE THE NG TUBE WHICH WAS NOT SUCCESSFUL WITH THE PT CONTINUING TO RESIST SO WE STOPPED AND UPDATED THE PHYSICIAN. MD ORDERED ZYPREXA WHICH WAS GIVEN IM AFTER HE REFUSED TO TAKE IT PO, THIS WAS FOLLOWED BY ANOTHER ATTEMPT TO PLACE THE NG THAT WAS STILL UNSUCCESSFUL IN WHICH NO FURTHER ATTEMPTS WERE MADE TO PLACE IT. SURGEON AND PRIMARY ATTENDING UPDATED ON SITUATION, PALLIATIVE CARE CONTACTED TO DISCUSS COMFORT CARE. PT TRANSITIONED TO COMFORT CARE AND SBFT ORDER CANCELLED. PT REMAINED IN RESTRAINTS T/O THE SHIFT WITH REGULAR CIRCULATION CHECKS AND 3 TIMES OF THEM BEING TAKEN OFF TO GET ROM AND TRIAL THEM OFF, EACH TIME THE PT ATTEMPTED TO START PULLING AT LINES AND GET OUT OF BED SO RESTRAINTS WERE REPLACED EACH TIME. ORDER UPDATED THIS SHIFT TO CHANGE FROM 2 POINT TO 4 POINT BUT STILL SOFT CUFF RESTRAINTS.
--- NOTE | 2021-09-28 20:44 | NUR ---
PT LYING IN BED, IS PLEASANTLY CONFUSED, ORIENTED TO SELF ONLY. 4 PT SOFT RESTRAINTS IN PLACE, PT PULLING AT RESTRAINTS, IS PULLING AT IV LINE AND REMOVING O2 TUBING. ATTEMPTED TO REORIENT PT. PT DENIES PAIN/N/V, NO DISTRESS NOTED. ABD DISTENDED, SOFT TO PALP. SKIN CHECKED AND ROM PERFORMED. ORAL CARE PROVIDED. BED ALARM AND REMOTE MONITORING CONT.
--- NOTE | 2021-09-28 22:31 | NUR ---
Removed and Replaced restraints on Patient
--- NOTE | 2021-09-29 00:36 | NUR ---
ATTEMPTED TO REMOVED RESTRAINTS DURING ROM EXERCISES. PT IMMEDIATELY BEGAN TO PULL OFF O2 TUBING AND PULL AT IV LINE. PT REORIENTED, MUMBLED INCOHEARANTLY. WILL ATTEMPT TO TRIAL AGAIN.
--- NOTE | 2021-09-29 07:25 | NUR ---
PT REMAINED PLEASANTLY CONFUSED T/O NIGHT. 2LO2 NC [address] FOR COMFORT. ANKLE RESTRAINTS REMOVED AT 0300. BIALT SOFT WRIST RESTRAINTS REMIAN IN PLACE R/T PT PULLING AT LINES. PT HAD SEVERAL LIQ BM, IS INCONTINENT OF URINE AND STOOL. NO N/V. PT REMAINS NPO, IVF CONT PER ORDERS. ORAL CARE PROVIDED T/O NIGHT. ROM AND REPOSITIONING PROVIDED W/ASSESSMENTS. BED ALARM ON.
--- NOTE | 2021-09-29 08:01 | NUR ---
COMFORT CARE ROUNDING PT FOUND SQUIRMING IN BED ATTEMPTING TO GET UP, FOUND TO BE SOILED. REASSURED PT AND GOT HIM CLEANED UP, PT RESTING CALMLY IN BED WHEN FINISHED.
--- NOTE | 2021-09-29 11:59 | NUR ---
Spiritual Care Visit. Pt. is awake in bed and welcomes my visit. Pt. is soft spoken, but pleasant and complimetary. For brief moments the pt. seemed confused, homever with a comforting presence and theraputic listening the Pt. displayed evidence of confident trust in the care he is receiving. Prayed with Pt. Pt. verbalized gratitude for the spiritual care visit.
--- NOTE | 2021-09-30 05:29 | NUR ---
SHIFT SUMMARY PT REMAINS CONFUSED T/O THE SHIFT. LELIA IN PLACE, PT ATTEMPTS TO GET OOB BED MULTIPLE TIMES, REMAINS A HIGH FALL RISK. FREQUENT PERIODS OF AGITATION AND FIGETING. PT PULLS AND RIPS ON ATTENDS, AND IS NOT DIRECTABLE. PT DENIES PAIN T/O SHIFT. COMFORT ASSESSED T/O SHIFT. NO ACUTE CHANGES OVERNIGHT. POSSIBLE DC TODAY. BED IN LOWEST POSITION, CALL LIGHT WITHIN REACH.
--- NOTE | 2021-09-30 10:04 | NUR ---
PT REPORTED FELT COLD FEELS COOL TO TOUCH. PLACED SOCKS ON FEET AND PROVIDED WARM BLANKETS.
--- NOTE | 2021-09-30 17:36 | NUR ---
summary NO ACUTE CHANGES T/O SHIFT. PT TOLERATING PO. HAS BEEN OUT OF LELIA VEST SINCE 1000 TODAY. MEDICATED THIS EVENING FOR AGITATION. PT PULLING AT CALL LIGHT, REMOVING GOWN, ATTEMPTING TO GET UP. PLEASANT BUT DIFFICULT TO REDIRECT AT TIMES. SITTING UP IN RECLINER W/CHAIR ALARM ON, EATING DINNER AT THIS TIME.
--- NOTE | 2021-09-30 20:00 | NUR ---
PT APPEARING CONFUSED.HX DEMENTIA. NOT ANSWERING QUESTIONS.BABBLES TO SELF,BUT NOT SPECIFIC TO SITUATION OTHER THAN PTS MENTION OF ICE CREAM.ORDERED ICE CREAM FROM [employer] SUPERVISOR. FREQUENTLY MOVES SELF TOWARD END OF BED.ATTEND WILL BE CHANGED,PT WILL BE REPOSITIONED AND MEDS WILL BE GIVEN.
--- NOTE | 2021-09-30 22:58 | NUR ---
PT RESTLESS,BUT NOT CLIMBING OUT OF BED SO FAR .
--- NOTE | 2021-10-01 01:26 | NUR ---
PT FIDGETS IN BED.NO ACUTE CHANGES.
--- NOTE | 2021-10-01 02:30 | NUR ---
PT APPEARING SLEEPING.
--- NOTE | 2021-10-01 08:36 | NUR ---
SLEEPING. BREATHING E/U. DOES NOT APPEAR TO BE ANY DISTRESS.
--- NOTE | 2021-10-01 11:24 | NUR ---
REPORT CALLED TO KARON AT [facility]'S PT DISCHARGED W/SPOUSE AND SON. LEFT UNIT IN WC W/POSSESSIONS AND FACILITY DC PACKET TO CAR OUTSIDE.
== END 2021-10-01 11:20 | disposition home or self-care (01) | DRG 388 ==
LOC: ER 07:26 → ERHOLD 10:32 → SURS 10:32
PROVIDERS: Student in an Organized Health Care Education/Training Program; ADMIT Internal Medicine
DX: K56.600 Partial intestinal obstruction, unspecified as to cause (principal); G93.41 Metabolic encephalopathy; N17.9 Acute kidney failure, unspecified; I10 Essential (primary) hypertension; Z66 Do not resuscitate; K21.9 Gastro-esophageal reflux disease without esophagitis; F32.A Depression, unspecified; Z51.5 Encounter for palliative care; G30.9 Alzheimer's disease, unspecified; F02.80 Dementia in other diseases classified elsewhere, unspecified severity, without behavioral disturbance, psychotic disturbance, mood disturbance, and anxiety; N40.0 Benign prostatic hyperplasia without lower urinary tract symptoms; R45.1 Restlessness and agitation; Z20.822 Contact with and (suspected) exposure to COVID-19; G43.909 Migraine, unspecified, not intractable, without status migrainosus; Z98.890 Other specified postprocedural states; Z90.49 Acquired absence of other specified parts of digestive tract; Z87.891 Personal history of nicotine dependence; Z79.899 Other long term (current) drug therapy; Z79.82 Long term (current) use of aspirin; Z79.811 Long term (current) use of aromatase inhibitors
CPT/HCPCS: 0241U; 36415; 51701; 71045; 74018; 74176; 80048; 80053; 80076; 81001; 82803; 83690; 83735; 84484; 85025; 85610; 85730; 86850; 86900; 86901; 87086; 93005; 93010; 96361; 96374; 99285-25; A9270; C9113; J1630; J1644; J2405; J7030

== ENCOUNTER → 2022-01-19 | Outpatient (CLI) | payer MEDICARE ==
[2022-01-19 09:40] LABS: BASOPHILS ABSOLUTE AUTO 0.05 K/mm3 (0.00-0.23); BASOPHILS PERCENT AUTO 1 % (0-2); EOSINOPHILS ABSOLUTE AUTO 0.35 K/mm3 (0.00-0.68); EOSINOPHILS PERCENT AUTO 5 % (0-6); Hematocrit 42.2 % (37.0-53.0); Hemoglobin 13.6 g/dL (13.5-17.5); IMMATURE GRAN ABSOLUTE AUTO 0.02 K/mm3 (0.00-0.10); IMMATURE GRAN PERCENT AUTO 0 % (0-1); LYMPHOCYTES ABSOLUTE AUTO 2.14 K/mm3 (0.84-5.20); LYMPHOCYTES PERCENT AUTO 33 % (21-46); MONOCYTES ABSOLUTE AUTO 0.64 K/mm3 (0.16-1.47); MONOCYTES PERCENT AUTO 10 % (4-13); Mean Corpuscular HGB 31.4 pg (26.0-34.0); Mean Corpuscular HGB Conc 32.2 g/dL (31.5-36.5); Mean Corpuscular Volume 98 fL (80-100); Mean Platelet Volume 10.5 fL (9.1-12.4); NEUTROPHILS ABSOLUTE AUTO 3.24 K/mm3 (1.96-9.15); NEUTROPHILS PERCENT AUTO 50 % (41-73); Platelet Count 178 K/mm3 (150-400); RDW Coefficient Variation 11.8 % (11.7-14.2); RDW Standard Deviation 42.7 fL (35.1-46.3); Red Blood Cell Count 4.33 M/mm3 (4.30-5.90); White Blood Cell Count 6.44 K/mm3 (4.00-11.30)
[2022-01-19 10:01] LABS: Alanine Aminotransfer (ALT/SGP 53 U/L (12-78); Albumin, Blood 3.5 g/dL (3.4-5.0); Alk Phos 82 U/L (50-136); Anion Gap 3 mmol/L (6-16); Aspartate Aminotrans (AST/SGOT 38 U/L (12-37); Bilirubin, Total 0.7 mg/dL (0.1-1.0); Blood Urea Nitrogen 37 mg/dL (8-24); Bun/Creatinine Ratio 28.9 (12.0-20.0); CHOL/HDL RATIO 5.8; CO2, Blood 33 mmol/L (21-32); Calcium, Blood 9.2 mg/dL (8.5-10.1); Chloride, Blood 112 mmol/L (98-108); Cholesterol 181 mg/dL (50-200); Creatinine, Blood 1.28 mg/dL (0.60-1.20); Globulin, Blood 3.4 g/dL (2.2-4.0); Glomerular Filtration Rate 54 (60-); Glucose, Blood 116 mg/dL (70-99); HDL Cholesterol 31 mg/dL (>39); Low Density Lipoprotein Chol 123 mg/dL (0-110); Potassium, Blood 3.6 mmol/L (3.5-5.5); Sodium, Blood 148 mmol/L (136-145); Total Protein, Blood 6.9 g/dL (6.4-8.2); Triglycerides 137 mg/dL (30-160); Very Low Density Lipoprot Chol 27 mg/dL (6-32)
== END | disposition home or self-care (01) ==
LOC: LAB SHORT 07:28 → LAB 07:28
PROVIDERS: Family Medicine
DX: E78.5 Hyperlipidemia, unspecified (principal); E87.6 Hypokalemia; I10 Essential (primary) hypertension; K21.9 Gastro-esophageal reflux disease without esophagitis; N40.0 Benign prostatic hyperplasia without lower urinary tract symptoms
CPT/HCPCS: 80053; 80061; 85025

== ENCOUNTER → 2022-01-28 | Outpatient (CLI) | payer MEDICARE ==
[2022-01-29 13:21] LABS: Source, Urine Clean Catch
[2022-01-29 14:17] LABS: Appearance, Urine Clear (Clear); Bilirubin, Urine Neg (Neg); Blood, Urine Neg (Neg); Color, Urine Yellow (P-Yellow); Glucose Qualitative, Urine Neg (Neg); Ketones, Urine Neg (Neg); Leukocyte Esterase, Urine Neg (Neg); Nitrite, Urine Neg (Neg); Protein, Urine Neg (Neg); Urobilinogen, Urine NORM (Normal)
== END ==
LOC: LAB SHORT 13:18 → LAB 13:18
PROVIDERS: Family Medicine
DX: N39.0 Urinary tract infection, site not specified (principal)
CPT/HCPCS: 81003

== ENCOUNTER → 2022-03-23 | Outpatient (CLI) | payer MEDICARE ==
[2022-03-23 18:45] LABS: Source, Urine Clean Catch
[2022-03-23 19:16] LABS: Appearance, Urine Clear (Clear); Bilirubin, Urine Neg (Neg); Blood, Urine Neg (Neg); Color, Urine Yellow (P-Yellow); Glucose Qualitative, Urine Neg (Neg); Ketones, Urine 3+ (Neg); Leukocyte Esterase, Urine 1+ (Neg); Nitrite, Urine Neg (Neg); Protein, Urine 1+ (Neg); Urobilinogen, Urine NORM (Normal)
[2022-03-23 19:39] LABS: Mucus Mod (0-Heavy)
[2022-03-23 19:40] LABS: Amorphous Light (0-Heavy)
[2022-03-23 19:42] LABS: Calcium Oxalate Crystals Mod /hpf; Red Blood Cells, Urine 0-2 /hpf (0-2); Squamous Epithelial Cells Rare /hpf (Few)
[2022-03-23 19:43] LABS: Bacteria Mod /hpf
== END | disposition home or self-care (01) ==
LOC: LAB 11:00 → LAB SHORT 11:00
PROVIDERS: Family Medicine
DX: N39.0 Urinary tract infection, site not specified (principal)
CPT/HCPCS: 81001; 87086